=== PATIENT | female | born 1975 | race Caucasian/White ===

== ENCOUNTER 2017-10-02 06:28 | Day surgery (SDC) | payer OTHER ==
[~2017-10-02 06:28] MED LIST: LACTATED RINGER'S 1,000 ML IV*
[2017-10-02] MEDS ORDERED: CEFAZOLIN 1 GM INJ (07:40)
[2017-10-02] MEDS ORDERED: PROPOFOL 20 ML (07:40)
[2017-10-02] MEDS ORDERED: MIDAZOLAM 1 MG/ML 2 ML INJ (07:40)
[2017-10-02] MEDS ORDERED: METOCLOPRAMIDE 10 MG INJ (07:41)
[2017-10-02] MEDS ORDERED: ONDANSETRON 4 MG INJ (07:41)
[2017-10-02] MEDS ORDERED: FENTAnyl 50 MCG/ML VIAL (07:50)
[2017-10-02] MEDS ORDERED: KETOROLAC 30 MG INJ (07:57)
[2017-10-02] MEDS: STRONG IODINE 14 ML SOLUTION TOP (08:09)
[2017-10-02] MEDS ORDERED: ONDANSETRON 4 MG INJ IV (09:00)
[2017-10-02] MEDS ORDERED: MEPERIDINE 25 MG INJ IV (09:00)
[2017-10-02] MEDS ORDERED: OXYCODONE/ACETAMINOPHEN (5/325) TAB PO ×2 (09:00)
[2017-10-02] MEDS ORDERED: HYDROmorphONE (0.2 MG/ML) 10ML SYG IV ×3 (09:00)
[2017-10-02] MEDS ORDERED: DIPHENHYDRAMINE 50 MG INJ IV (09:00)
== END 2017-10-02 10:28 | disposition home or self-care (01) ==
LOC: SDS 06:28
DX: N87.9 Dysplasia of cervix uteri, unspecified (principal); Z85.038 Personal history of other malignant neoplasm of large intestine
CPT/HCPCS: 57520; 88305